=== PATIENT | male | born 1950 | race Caucasian/White ===

== ENCOUNTER 2017-02-02 03:00 | Outpatient (CLI) | END 2017-02-02 03:01 | LOC: AMBL 03:00 | PROVIDERS: ATTEND Family Medicine | DX: R06.02 Shortness of breath (principal); R53.1 Weakness; E11.9 Type 2 diabetes mellitus without complications; C95.90 Leukemia, unspecified not having achieved remission; Z98.890 Other specified postprocedural states ==